=== PATIENT | male | born 1995 | race Caucasian/White ===

== ENCOUNTER 2017-04-29 18:59 | Emergency (ER) | payer SELFPAY ==
[~2017-04-29] VITALS: Ht 182.9 cm; Wt 65.8 kg
[2017-04-29] MEDS ORDERED: IBUPROFEN600 MG PO (19:54)
[2017-04-29] MEDS ORDERED: ZOFRAN ODT4 MG PO (19:54)
== END 2017-04-29 20:10 | disposition home or self-care (01) ==
LOC: ED 18:59
DX: S16.1XXA Strain of muscle, fascia and tendon at neck level, initial encounter (principal); S20.229A Contusion of unspecified back wall of thorax, initial encounter; V00.131A Fall from skateboard, initial encounter
CPT/HCPCS: 72040; 96372; 99283; J2405